=== PATIENT | female | born 1980 | race Caucasian/White ===

== ENCOUNTER → 2017-12-23 09:52 | Outpatient (CLI) | payer OTHER, SELFPAY ==
--- NOTE | 2017-12-23 | DI.US.S_ITS ---
ULTRASOUND OF RIGHT BREAST: 12/23/2017 CLINICAL: Focal right breast pain. Comparison is made to exams dated: 12/18/2017 mammogram and 06/01/2015 mammogram - [facility]. Color flow ultrasound of the right breast was performed. Hutchins scale images of the real-time examination were reviewed. IMPRESSION: NEGATIVE There is no sonographic evidence of malignancy. There is no abnormality seen in the right breast to correspond with the area of clinical concern, however, clinical followup is recommended. A 1 year screening mammogram is recommended. This exam was interpreted at Station ID: [id number]. Electronically Signed By: Lusi doshi/levy:12/23/2017 10:17:53 letter sent: Clinical Evaluation Ultrasound BI-RADS: 1 Negative
== END ==
PROVIDERS: PCP Nurse Practitioner Family; Visit Provider Nurse Practitioner Family
DX: N64.4 Mastodynia (principal)
CPT/HCPCS: 76642

== ENCOUNTER → 2019-04-15 14:17 | Outpatient (CLI) | payer OTHER, SELFPAY ==
--- NOTE | 2019-04-15 | DI.US.S_ITS ---
PROCEDURE: US PELVIC COMPLETE INDICATIONS: MENORRHAGIA TECHNIQUE: Real-time scanning was performed of the pelvic organs, with image documentation. Additional endovaginal scanning was necessary due to incomplete visualization of the adnexal and endometrial structures by transabdominal scanning. COMPARISON: [facility], , PELVIC COMPLETE, 10/12/2014, 16:14. FINDINGS: Transabdominal scanning: Limited scanning through the kidneys shows no hydronephrosis. No pathologic free abdominal or pelvic fluid. Endovaginal scanning: Uterus: Uterus is normal in size at 8.3 x 5.8 x 4.5 cm. The endometrium measures 9.9 mm in combined thickness. Echogenic foci contiguous with the mid endometrium likely related to retained blood products. Ovaries: Ovaries are normal bilaterally measuring 2.8 x 2.8 x 1.7 cm on the right and 3.0 x 3.0 x 3.0 cm on the left. Regressing physiologic cysts associated with the left ovary measuring 2.1 cm. IMPRESSION: No source for menorrhagia identified. Dictated by: El GAINES Interpreted: Chris Saldaña MD on 04/15/2019 at 15:54 Approved by: Chris Saldaña M.D. on 04/15/2019 at 16:53
== END ==
PROVIDERS: PCP Nurse Practitioner Family; Visit Provider Nurse Practitioner Family
DX: N92.0 Excessive and frequent menstruation with regular cycle (principal); N83.292 Other ovarian cyst, left side
CPT/HCPCS: 76856

== ENCOUNTER 2019-07-19 14:28 | Day surgery (SDC) | payer OTHER, SELFPAY ==
[2019-07-15 08:40] VITALS: BMI 26.3
[2019-07-19] VITALS (9 sets, daily range): BP systolic 119–140; BP diastolic 68–88; PULSE 43–65; RESP 12–20; TEMP 36.2–36.7; O2SAT 98–100; BMI 26.2
[2019-07-19] MEDS: LACTATED RINGERS 1,000 ML 100 ML IV (15:00)
--- NOTE | 2019-07-19 15:07 | PM.PREOP ---
Pre-operative Note Interval Note History & Physical reviewed/Exam performed by Physician: Yes Changes to H&P: No
--- NOTE | 2019-07-19 15:26 | SUR.OPER ---
Lithotomy on padded OR bed, head on pillow, arms secured on padded arm boards at <90 degrees abduction. Legs secured in padded yellow fins stirrups.
--- NOTE | 2019-07-19 15:47 | PM.OP.1 ---
Operative Date/Time/Diagnoses Date of procedure: 07/19/19 Time of procedure: 15:47 Pre-op diagnosis: Menorrhagia Post-op diagnosis: same Procedure & Clinicians Procedure: Hysteroscopy with NovaSure ablation Same procedure as scheduled: Yes Indications: Menorrhagia Surgeon: Dorita Leal Click Yes if Unassisted: Yes Anesthesia Type: General Operative Notes Findings: Normal endometrium without any abnormalities. Closure Type: not applicable Specimen(s): none sent Estimated Blood Loss (mL): 5 Blood products transfused: none Procedure in detail: Patient was brought to the operating room where she was underwent general anesthesia was placed in the [facility]. Pulsatile stockings were in place and functional. Antibiotics were not indicated. Warming was with blankets. A check system was reviewed with the staff in the room. A single-tooth tenaculum was placed on the anterior lip of the cervix. The cervix was dilated to a 7 Hegar dilator. The hysteroscope was placed through the cervix into the uterus with saline solution running in. The endometrial lining was very thin. The NovaSure sound was used to determine the length of the uterus which was over 5 cm. This was set on the NovaSure device. The device was placed in the uterus and the width determined to be 3.7 cm. The length and width were entered into the NovaSure machine. The plunger was pushed to the cervix to effect a good vacuum seal. This was documented by the machine. Cauterization was done with a total power of 102 and 1.25 seconds. The NovaSure array was pulled back into the device and then the device removed. Patient tolerated the procedure well. Counts of instruments and sponges were correct. Patient went to recovery room in good condition. Complications: none Post-operative Condition: stable Disposition: same day surgery Plan for aftercare: Home when awake and stable. Follow-up as needed.
[2019-07-19] MEDS: KETOROLAC 30 MG/ML VIAL IV (15:48)
[2019-07-19] MEDS: OXYCODONE/ACETAMINOPHEN 5/325 TABLET 1 TAB PO ×2 (15:59→16:43)
[2019-07-19] MEDS: fentaNYL 100 MCG/2 ML INJ IV ×3 (15:59→16:24)
--- NOTE | 2019-07-19 16:21 | SUR.PHASEI ---
Assisted patient to bedpan in an attempt to void. Patient states she feels pressure in her lower abdominal area and thinks she might need to void. No urine produced to bedpan.
[2019-07-19] MEDS: ONDANSETRON 4 MG/2 ML INJ IV (16:40)
--- NOTE | 2019-07-19 16:53 | SUR.PHASEI ---
Patient drinking third juice and eating crackers without difficulty.
== END 2019-07-19 17:05 | disposition home or self-care (01) ==
PROVIDERS: PCP Nurse Practitioner Family; Visit Provider Specialist
PROC: 0U5B8ZZ Destruction of Endometrium, Via Natural or Artificial Opening Endoscopic (ICD-10-PCS; CPT 58563; principal; 2019-07-19 15:30)
DX: N92.0 Excessive and frequent menstruation with regular cycle (principal)
CPT/HCPCS: 58563; J1885; J2250; J2405; J2704; J3010